=== PATIENT | female | born 1990 | race African-American/Black ===

== ENCOUNTER 2022-01-31 14:58 | Inpatient (IN) | payer OTHER ==
[~2022-01-31] VITALS: Ht 165.1 cm; Wt 112.9 kg
[2022-01-31] MEDS ORDERED: ACETAMINOPHEN 325MG TABLET PO STA (19:52)
[2022-01-31] MEDS ORDERED: SODIUM CHLORIDE 0.9% 1,000 ML IV ONE (20:00)
[2022-01-31] MEDS ORDERED: CEFTRIAXONE 1,000 MG in DEXTROSE 5% WATER 50 ML IV NR (20:15)
[2022-01-31] MEDS ORDERED: CEFTRIAXONE 1 G PREMIX 50 ML IV ONE ×2 (20:15)
[2022-01-31 20:36] LABS: HEMATOCRIT. 30.7 % (36.0-48.0); HEMOGLOBIN. 10.1 g/dL (12.0-16.0); MEAN CORPUSCULAR HEMOGLOBIN 23.6 pg (28.0-32.0); MEAN PLATELET VOLUME 7.9 fl (7.4-10.4); PLATELET 311 x1000/uL (130-400); RED BLOOD CELL COUNT 4.26 mill/uL (4.2-5.4); RED CELL DISTRIBUTION WIDTH 17.2 % (11.6-14.6)
[2022-01-31 20:37] LABS: CLARITY URINE CLOUDY (CLEAR); COLOR URINE ORANGE (YELLOW); KETONES URINE TRACE (NEGATIVE); LEUKOCYTE ESTERASE URINE 1+ (NEGATIVE); NITRITE URINE POSITIVE (NEGATIVE); OCCULT BLOOD URINE 3+ (NEGATIVE); PH URINE 5.5 (4.5-8.0); PROTEIN URINE 3+ (NEGATIVE); SPECIFIC GRAVITY URINE 1.026 (1.005-1.030)
[2022-01-31 20:59] LABS: CHLORIDE 103 mEq/L (98-107)
[2022-01-31 21:22] LABS: B-HCG QUANTITATIVE 22345 mIU/mL (<3)
[2022-01-31 22:44] LABS: PLATELET ESTIMATE NORMAL
[2022-02-01] MEDS ORDERED: GENTAMICIN 80MG PREMIX 100 ML IV SCH (07:30)
[2022-02-01] MEDS ORDERED: ACETAMINOPHEN 325MG TABLET PO PRN ×2 (07:30)
[2022-02-01] MEDS ORDERED: ONDANSETRON HCL 4MG/2ML INJ IV PRN (07:30)
[2022-02-01] MEDS: SODIUM CHLORIDE 0.9% 1,000 ML IV SCH ×3 (08:00→23:54)
[2022-02-01] MEDS: GENTAMICIN 100MG PREMIX 50 ML IV SCH ×2 (08:30→22:29)
[2022-02-01] MEDS: AMPICILLIN 1,000 MG in SODIUM CHLORIDE 0.9% 50 ML IV SCH ×3 (09:00→21:38)
[2022-02-01 18:00] VITALS: BP 101/66
[2022-02-01 20:00] VITALS: BP 99/53
[2022-02-02] VITALS: BP 134/80
[2022-02-02] MEDS: AMPICILLIN 1,000 MG in SODIUM CHLORIDE 0.9% 50 ML IV SCH ×2 (01:00→08:09)
[2022-02-02 04:00] VITALS: BP 99/60
[2022-02-02 06:30] LABS: HEMATOCRIT 24.3 % (36.0-48.0); HEMOGLOBIN 8.5 g/dL (12.0-16.0); MEAN CORPUSCULAR HEMOGLOBIN 24.5 pg (28.0-32.0); MEAN CORPUSCULAR VOLUME 70.1 fL (81.0-99.0); PLATELET 267 x1000/uL (130-400); RED BLOOD CELL COUNT 3.47 mill/uL (4.2-5.4); RED CELL DISTRIBUTION WIDTH 17.2 % (11.6-14.6)
[2022-02-02 07:01] LABS: CHLORIDE 110 mEq/L (98-107)
[2022-02-02 08:00] VITALS: BP 97/53
[2022-02-02] MEDS: GENTAMICIN 100MG PREMIX 50 ML IV SCH (08:09)
[2022-02-02] MEDS: SODIUM CHLORIDE 0.9% 1,000 ML IV SCH (08:10)
[2022-02-02] MEDS ORDERED: CEPH500C2 MT (08:53)
[2022-02-02 10:51] VITALS: BP 97/53
== END 2022-02-02 11:29 | disposition home or self-care (01) | DRG 566 ==
LOC: ER 14:58 → MICUSO 23:30 → 6EST 02-01 17:57
PROVIDERS: ADMIT Obstetrics & Gynecology; ATTEND Obstetrics & Gynecology
DX: O23.01 Infections of kidney in pregnancy, first trimester (principal); N83.12 Corpus luteum cyst of left ovary; O34.81 Maternal care for other abnormalities of pelvic organs, first trimester; Z3A.08 8 weeks gestation of pregnancy
CPT/HCPCS: 36415; 76700; 76801; 80053; 81003; 84702; 85025; 85027; 86850; 86900; 87077; 87186; 93005; 99285; J0290; J0696; J1580; J7030; J7060